=== PATIENT | female | born 1950 | race Caucasian/White ===

== ENCOUNTER 2021-12-13 17:23 | Emergency (ER) | payer MEDICARE, OTHER ==
[2021-12-13 19:54] LABS: HEMOGLOBIN 8.5 gm/dl (12.3-15.3); RED BLOOD COUNT 3.76 M/UL (4.00-5.10); WHITE BLOOD COUNT 5.5 K/UL (4.5-11.0)
[2021-12-13 20:09] LABS: BUN/CREATININE RATIO 43 (0-10)
[2021-12-13] MEDS ORDERED: HYDROCODON-ACE1 EAC4 PO (21:59)
== END 2021-12-13 22:11 | disposition home or self-care (01) ==
LOC: ER1 17:23
PROVIDERS: Family Medicine
DX: S82.301A Unspecified fracture of lower end of right tibia, initial encounter for closed fracture (principal); Z87.891 Personal history of nicotine dependence; I10 Essential (primary) hypertension; E78.5 Hyperlipidemia, unspecified; Z86.73 Personal history of transient ischemic attack (TIA), and cerebral infarction without residual deficits
CPT/HCPCS: 71045; 73590; 80053; 85025; 85610; 96374; 96375; 99283; J2270; J2405